=== PATIENT | female | born 1945 | race Asian ===

== ENCOUNTER 2016-12-10 01:47 | Emergency (ER) | payer MEDICARE, OTHER ==
[~2016-12-10] VITALS: Ht 162.6 cm; Wt 59.1 kg
[2016-12-10] MEDS ORDERED: CYAN500L3 PO (01:55)
[2016-12-10] MEDS ORDERED: ACET1TAB12 PO (01:55)
[2016-12-10] MEDS ORDERED: FAMO20 PO (01:55)
[2016-12-10] MEDS ORDERED: ATEN50TA PO (01:55)
[2016-12-10] MEDS ORDERED: METF500T4 PO (01:55)
[2016-12-10] MEDS ORDERED: VITAD1000 PO (01:55)
[2016-12-10] MEDS ORDERED: AMLO1CAP12 PO (01:55)
[2016-12-10] MEDS ORDERED: SITA100 PO (01:55)
[2016-12-10] MEDS ORDERED: ATOR10TA84 PO (01:55)
[2016-12-10] MEDS ORDERED: ASPI-556 PO (01:55)
[2016-12-10 03:01] LABS: BASOPHILS # (AUTO) 0.06 K/uL (0.00-0.20); BASOPHILS % (AUTO) 0.8 % (0.0-2.0); EOSINOPHILS # (AUTO) 0.09 K/uL (0.00-0.70); EOSINOPHILS % (AUTO) 1.28 % (1.0-6.0); HEMATOCRIT 33.7 % (36-46); HEMOGLOBIN 11.1 g/dL (12.0-16.0); LYMPHOCYTES # (AUTO) 1.2 K/uL (1.0-4.8); LYMPHOCYTES % (AUTO) 16.8 % (22.0-44.0); MEAN CORPUSCULAR HEMOGLOBIN 28.9 pg (26.0-34.0); MEAN CORPUSCULAR HGB CONC 32.9 G/dL (31.0-37.0); MEAN CORPUSCULAR VOLUME 88 fL (80-100); MONOCYTES # (AUTO) 0.7 K/uL (0.1-1.0); MONOCYTES % (AUTO) 9.7 % (2.0-9.0); NEUTROPHILS # (AUTO) 5.2 K/uL (1.8-7.7); NEUTROPHILS % (AUTO) 71.5 % (40.0-70.0); PLATELET COUNT (AUTO) 462 K/uL (150-450); RED BLOOD CELL COUNT(AUTO) 3.83 MIL/uL (4.00-5.20); RED CELL DISTRIBUTION WIDTH 12.8 % (11.5-14.5); WHITE BLOOD COUNT (AUTO) 7.3 K/uL (4.5-11.0)
[2016-12-10 03:11] LABS: ANION GAP 9 mmol/L (8-16); CALCIUM, TOTAL 9.2 mg/dL (8.8-10.5); CARBON DIOXIDE 29 mmol/L (22-29); CHLORIDE 100 mmol/L (98-107); CREATININE 0.82 mg/dL (0.60-1.30); GLOMERULAR FILTR. RATE CALC > 60 mL/min (>60); POTASSIUM 3.6 mmol/L (3.5-5.1); SODIUM SERUM 138 mmol/L (136-145); UREA NITROGEN, BLOOD 8 mg/dL (7-18)
[2016-12-10 03:17] LABS: ALANINE AMINOTRANSFERASE 21 U/L (12-78); ALBUMIN 2.9 g/dL (3.4-5.0); ASPARTATE AMINOTRANSFERASE 15 U/L (15-37); BILIRUBIN,TOTAL 0.2 mg/dL (0.1-1.0); TOTAL PROTEIN, SERUM 7.2 g/dL (6.4-8.2)
[2016-12-10] MEDS ORDERED: SODIUM CHLORIDE 0.9% 1,000 ML IV ONE (03:45)
[2016-12-10 04:51] VITALS: BP 153/76
[2016-12-10] MEDS ORDERED: IOVERSOL 350 MG/ML 100 ML VIAL ONE (14:20)
[2016-12-10] MEDS ORDERED: SODIUM CHLORIDE 0.9% 100 ML ONE (14:20)
== END 2016-12-10 05:54 | disposition home or self-care (01) ==
LOC: EMS 01:49
DX: R06.02 Shortness of breath (principal); E11.9 Type 2 diabetes mellitus without complications; I50.9 Heart failure, unspecified; Z79.82 Long term (current) use of aspirin
CPT/HCPCS: 36415; 71010; 71260; 80053; 84484; 85025; 85379; 93005; 96360; 99285; J7050; Q9967